=== PATIENT | female | born 1960 | race Caucasian/White ===

== ENCOUNTER 2017-11-20 11:38 | Inpatient (IN) | payer SELFPAY ==
[~2017-11-20] VITALS: Ht 160 cm; Wt 57.0 kg
[2017-11-20] VITALS (11 sets, daily range): BP systolic 73–117; BP diastolic 59–79
[~2017-11-20 11:38] MED LIST: AQUAPHILIC454 GM TP; ASACOL400 MG PO; CIPRO500 MG PO; DELZICOL400 M1 PO; Folvite PO; HYDROCHLOROTH12.5 M3 PO; HYDROCODON-ACE1 EAC7 PO; Habitrol,Nicoderm CQ TD; LIALDA1.2 GM PO; LIDODERM 5% P1 PATCH TD; Levaquin PO; MACROBID100 MG PO; NICOTINE PATCH1 EAC1 TD; PRILOSEC20 MG PO; PYRIDIUM200 MG PO; Preparation H PR; Protonix PO; TRAMADOL HCL50 MG PO; oxyCODONE PO; predniSONE PO
[2017-11-20 12:20] LABS: HEMATOCRIT 41.7 % (36.0-46.0); HEMOGLOBIN 14.3 G/DL (11.9-15.5); MCH 30.4 PG (29.0-34.0); MCHC 34.3 G/DL (30.0-36.0); MCV 88.5 FL (83-99); NRBC (%) 0.2 /100 WBC (0-0); PLATELET COUNT 240 K/uL (156-360); RBC DIS.WIDTH-CV 18.2 % (11.8-14.6); RBC DIS.WIDTH-SD 56.1 % (39-53); RED BLOOD COUNT 4.71 M/uL (3.80-5.20); WHITE BLOOD COUNT 10.5 K/uL (4.1-10.2)
[2017-11-20 12:29] LABS: CHLORIDE 112 mEq/L (99-109); POTASSIUM 4.3 mEq/L (3.7-5.4); SODIUM 137 mEq/L (136-147)
[2017-11-20 12:31] LABS: GLUCOSE 117 mg/dL (70-99)
[2017-11-20 12:35] LABS: CREATININE 1.5 mg/dL (0.6-1.3); GFR ESTIMATE (CALCULATED) 38 mL/min/
[2017-11-20 12:36] LABS: UREA NITROGEN (BUN) 9 mg/dL (9-23)
[2017-11-20 12:41] LABS: TROP-I INTERPRETATION NEGATIVE; TROPONIN-I < 0.01 ng/mL (0.0-0.30)
[2017-11-20 14:11] LABS: CARBON DIOXIDE (BICARBONATE) 7.2 MEQ/L (20-31)
[2017-11-20] MEDS ORDERED: TYLENOL REGULA325 MG PO (15:03)
[2017-11-20] MEDS ORDERED: POTASSIUM-9999 MG PO (15:03)
[2017-11-20 17:35] LABS: INTER. NORMALIZED RATIO 1.3
[2017-11-20 17:37] LABS: PTT 33.2 SEC (25-37)
[2017-11-20 18:04] LABS: ACETAMINOPHEN (TYLENOL) 27 mcg/mL (10-30); SALICYLATE < 5.0 MG/DL (15-30)
[2017-11-20 18:10] LABS: DEVICE RA; PCO2 19 mm Hg (35-45); SITE RB; TOTAL RESP RATE 26 resp/min; pH 7.18 (7.35-7.45)
[2017-11-20 18:11] LABS: CARBOXY HGB 1.2 % (0-5); METHEMOGLOBIN 1.2 % (0-1.5); O2 SATURATION (CALCULATED) 96.9 % (95-99); PO2 130 mm Hg (80-100)
[2017-11-20 18:31] LABS: APPEARANCE TURBID ((CLEAR)); BILIRUBIN NEGATIVE; BLOOD LARGE; COLOR AMBER ((YELLOW)); GLUCOSE (STRIP) NEGATIVE; KETONES NEGATIVE; LEUKOCYTES LARGE; NITRITE POSITIVE; PROTEIN (STRIP) 100; UROBILINOGEN 0.2 MG/DL (0.2-1.0)
[2017-11-20 18:41] LABS: TOTAL BILIRUBIN 0.3 mg/dL (0.0-1.0)
[2017-11-20 18:43] LABS: ALKALINE PHOSPHATASE 176 IU/L (3-129); CREATININE 1.4 mg/dL (0.6-1.3); GFR ESTIMATE (CALCULATED) 41 mL/min/
[2017-11-20 18:44] LABS: UREA NITROGEN (BUN) 11 mg/dL (9-23)
[2017-11-20 18:45] LABS: AST (GOT) 7 IU/L (2-34)
[2017-11-20 18:46] LABS: ALT (GPT) 8 IU/L (3-49)
[2017-11-20 18:49] LABS: ALBUMIN 3.4 g/dL (3.2-4.8); CHLORIDE 115 mEq/L (99-109); SODIUM 137 mEq/L (136-147); TOTAL PROTEIN 6.4 g/dL (6.4-8.3)
[2017-11-20 18:56] LABS: RED BLOOD CELLS TNTC /HPF (0-5); UCUL ADDED? YES; WHITE BLOOD CELLS TNTC /HPF (0-5)
[2017-11-20 19:06] LABS: GLUCOSE 158 mg/dL (70-99); POTASSIUM 3.3 mEq/L (3.7-5.4)
[2017-11-20 19:12] LABS: INTER. NORMALIZED RATIO 1.4
[2017-11-20 19:15] LABS: PTT 31.5 SEC (25-37)
[2017-11-20 19:21] LABS: HIGH-SENS C-REACTIVE PROTEIN 7.51 MG/DL (0.02-0.20)
[2017-11-20 19:24] LABS: CREATINE KINASE 33 IU/L (1-294)
[2017-11-20 23:53] LABS: CHLORIDE 115 mEq/L (99-109); SODIUM 142 mEq/L (136-147)
[2017-11-20 23:54] LABS: MAGNESIUM 1.2 mg/dL (1.3-2.7)
[2017-11-20 23:55] LABS: GLUCOSE 219 mg/dL (70-99)
[2017-11-20 23:59] LABS: CREATININE 1.1 mg/dL (0.6-1.3); GFR ESTIMATE (CALCULATED) 55 mL/min/; PHOSPHORUS 1.9 mg/dL (2.5-4.9)
[2017-11-21] VITALS (14 sets, daily range): BP systolic 92–115; BP diastolic 56–74
[2017-11-21] LABS: UREA NITROGEN (BUN) 8 mg/dL (9-23)
[2017-11-21 00:01] LABS: POTASSIUM 2.4 mEq/L (3.7-5.4)
[2017-11-21 05:50] LABS: BASOPHIL (%) 0 % (0-1); EOSINOPHIL (%) 0 % (0-5); HEMATOCRIT 20.8 % (36.0-46.0); IMMATURE GRANULOCYTE (%) 0.6 % (0.0-0.7); LYMPHOCYTE (%) 17.7 % (15-42); LYMPHOCYTE COUNT 0.3 K/uL (1.0-2.8); MCHC 34.6 G/DL (30.0-36.0); MCV 86.7 FL (83-99); MONOCYTE (%) 1.2 % (3-12); NEUTROPHIL (%) 80.5 % (45-76); NEUTROPHIL COUNT 1.3 K/uL (1.8-6.4); RBC DIS.WIDTH-CV 17.2 % (11.8-14.6); RBC DIS.WIDTH-SD 53.4 % (39-53)
[2017-11-21 06:16] LABS: ALBUMIN 2.5 G/DL (3.2-4.8); ALKALINE PHOSPHATASE 123 IU/L (3-129); ALT (GPT) 5 IU/L (3-49); AST (GOT) 8 IU/L (2-34); CHLORIDE 109 MEQ/L (99-109); CREATININE 0.8 MG/DL (0.6-1.3); GFR ESTIMATE (CALCULATED) > 59 mL/min/; GLUCOSE 227 mg/dL (70-99); PHOSPHORUS 3.1 mg/dL (2.5-4.9); SODIUM 143 MEQ/L (136-147); TOTAL BILIRUBIN 0.2 MG/DL (0.0-1.0); TOTAL PROTEIN 4.5 G/DL (6.4-8.3); UREA NITROGEN (BUN) 5 mg/dL (9-23)
[2017-11-21 06:46] LABS: HEMOGLOBIN 7.2 G/DL (11.9-15.5); WHITE BLOOD COUNT 1.6 K/uL (4.1-10.2)
[2017-11-21 08:32] LABS: PLAT.SUFFICIENCY DECREASED
[2017-11-21 08:44] LABS: PLATELET COUNT 101 K/uL (156-360)
[2017-11-21 15:34] LABS: HEMATOCRIT 22.1 % (36.0-46.0); HEMOGLOBIN 8.2 G/DL (11.9-15.5); MCH 31.1 PG (29.0-34.0); MCHC 37.1 G/DL (30.0-36.0); MCV 83.7 FL (83-99); PLATELET COUNT 121 K/uL (156-360); RBC DIS.WIDTH-CV 17.3 % (11.8-14.6); RBC DIS.WIDTH-SD 51.8 % (39-53); RED BLOOD COUNT 2.64 M/uL (3.80-5.20); WHITE BLOOD COUNT 3.9 K/uL (4.1-10.2)
[2017-11-21 18:54] LABS: CHLORIDE 102 MEQ/L (99-109); CREATININE 0.7 MG/DL (0.6-1.3); GFR ESTIMATE (CALCULATED) > 59 mL/min/; MAGNESIUM 1.8 mg/dl (1.3-2.7); POTASSIUM 3.5 MEQ/L (3.7-5.4); SODIUM 141 MEQ/L (136-147); UREA NITROGEN (BUN) 4 mg/dL (9-23)
[2017-11-21 18:56] LABS: GLUCOSE 113 mg/dL (70-99); PHOSPHORUS 1.9 mg/dL (2.5-4.9)
[2017-11-22 00:13] VITALS: BP 91/58
[2017-11-22 04:11] VITALS: BP 98/59
[2017-11-22 05:57] LABS: BASOPHIL (%) 0 % (0-1); EOSINOPHIL (%) 0.1 % (0-5); HEMATOCRIT 27.9 % (36.0-46.0); HEMOGLOBIN 9.7 G/DL (11.9-15.5); IMMATURE GRANULOCYTE (%) 1.1 % (0.0-0.7); LYMPHOCYTE COUNT 0.3 K/uL (1.0-2.8); MCH 30.4 PG (29.0-34.0); MCHC 34.8 G/DL (30.0-36.0); MCV 87.5 FL (83-99); MONOCYTE (%) 4.1 % (3-12); MONOCYTE COUNT 0.3 K/uL (0-0.8); NEUTROPHIL (%) 90.7 % (45-76); NEUTROPHIL COUNT 7.5 K/uL (1.8-6.4); PLATELET COUNT 139 K/uL (156-360); RBC DIS.WIDTH-CV 17.9 % (11.8-14.6); WHITE BLOOD COUNT 8.2 K/uL (4.1-10.2)
[2017-11-22 06:10] LABS: RED BLOOD COUNT 3.19 M/uL (3.80-5.20)
[2017-11-22 06:23] LABS: ALBUMIN 2.8 G/DL (3.2-4.8); ALKALINE PHOSPHATASE 127 IU/L (3-129); ALT (GPT) 6 IU/L (3-49); CHLORIDE 96 MEQ/L (99-109); CREATININE 0.9 MG/DL (0.6-1.3); GFR ESTIMATE (CALCULATED) > 59 mL/min/; GLUCOSE 129 mg/dL (70-99); MAGNESIUM 1.8 mg/dl (1.3-2.7); PHOSPHORUS 2.5 mg/dL (2.5-4.9); POTASSIUM 3.6 MEQ/L (3.7-5.4); SODIUM 142 MEQ/L (136-147); UREA NITROGEN (BUN) 7 mg/dL (9-23)
[2017-11-22 06:24] LABS: AST (GOT) 12 IU/L (2-34); TOTAL BILIRUBIN 0.3 MG/DL (0.0-1.0)
[2017-11-22 08:01] VITALS: BP 102/62
[2017-11-22 11:30] VITALS: BP 101/65
[2017-11-22 17:40] VITALS: BP 109/69
[2017-11-22 19:57] LABS: CHLORIDE 94 MEQ/L (99-109); CREATININE 0.9 MG/DL (0.6-1.3); GFR ESTIMATE (CALCULATED) > 59 mL/min/; GLUCOSE 174 mg/dL (70-99); PHOSPHORUS 2.3 mg/dL (2.5-4.9); SODIUM 139 MEQ/L (136-147); UREA NITROGEN (BUN) 9 mg/dL (9-23)
[2017-11-22 19:59] LABS: MAGNESIUM 2.4 mg/dl (1.3-2.7)
[2017-11-23 00:11] VITALS: BP 106/60
[2017-11-23 06:14] LABS: ALBUMIN 2.5 G/DL (3.2-4.8); ALT (GPT) 9 IU/L (3-49); AST (GOT) 16 IU/L (2-34); CHLORIDE 96 MEQ/L (99-109); CREATININE 0.9 MG/DL (0.6-1.3); GFR ESTIMATE (CALCULATED) > 59 mL/min/; GLUCOSE 141 mg/dL (70-99); MAGNESIUM 2.2 mg/dl (1.3-2.7); PHOSPHORUS 2.4 mg/dL (2.5-4.9); POTASSIUM 3.3 MEQ/L (3.7-5.4); SODIUM 141 MEQ/L (136-147); TOTAL BILIRUBIN 0.3 MG/DL (0.0-1.0); TOTAL PROTEIN 4.5 G/DL (6.4-8.3); UREA NITROGEN (BUN) 10 mg/dL (9-23)
[2017-11-23 06:15] LABS: ALKALINE PHOSPHATASE 90 IU/L (3-129)
[2017-11-23 07:11] LABS: HEMATOCRIT 23.6 % (36.0-46.0); HEMOGLOBIN 7.9 G/DL (11.9-15.5); MCHC 33.5 G/DL (30.0-36.0); MCV 89.7 FL (83-99); RBC DIS.WIDTH-CV 17.1 % (11.8-14.6); RBC DIS.WIDTH-SD 55.4 % (39-53); RED BLOOD COUNT 2.63 M/uL (3.80-5.20); WHITE BLOOD COUNT 3.2 K/uL (4.1-10.2)
[2017-11-23 07:23] VITALS: BP 92/61
[2017-11-23 08:00] LABS: ABS NEUTROPHIL COUNT 3.1; ANISOCYTOSIS 3+; BAND NEUTROPHILS 3.5 % (0-8.0); EOSINOPHIL ABS CT 0; HYPOCHROMASIA 2+; LYMPHOCYTES 4.4 % (15.0-45.0); MACROCYTES 1+; MICROCYTOSIS 2+; NUCLEATED RBC'S 0.9; PLAT.SUFFICIENCY DECREASED; POIKILOCYTOSIS 1+; SEG.NEUTROPHILS 92.1 % (46.0-76.0)
[2017-11-23 08:04] LABS: PLATELET COUNT 86 K/uL (156-360)
[2017-11-23 14:14] LABS: HEMATOCRIT 24.9 % (36.0-46.0); HEMOGLOBIN 8.5 G/DL (11.9-15.5); MCV 90.2 FL (83-99)
[2017-11-23 15:52] VITALS: BP 106/57
[2017-11-24] VITALS (8 sets, daily range): BP systolic 93–120; BP diastolic 62–69
[2017-11-24 06:06] LABS: BASOPHIL (%) 0 % (0-1); EOSINOPHIL (%) 0 % (0-5); HEMATOCRIT 22.4 % (36.0-46.0); HEMOGLOBIN 7.4 G/DL (11.9-15.5); IMMATURE GRANULOCYTE (%) 0.3 % (0.0-0.7); LYMPHOCYTE (%) 8.9 % (15-42); LYMPHOCYTE COUNT 0.3 K/uL (1.0-2.8); MCH 30.3 PG (29.0-34.0); MCV 91.8 FL (83-99); MONOCYTE (%) 3.8 % (3-12); MONOCYTE COUNT 0.1 K/uL (0-0.8); NEUTROPHIL COUNT 3.2 K/uL (1.8-6.4); PLATELET COUNT 77 K/uL (156-360); RBC DIS.WIDTH-CV 16.2 % (11.8-14.6); RBC DIS.WIDTH-SD 54.4 % (39-53); RED BLOOD COUNT 2.44 M/uL (3.80-5.20); WHITE BLOOD COUNT 3.7 K/uL (4.1-10.2)
[2017-11-24 06:28] LABS: ALBUMIN 2.5 G/DL (3.2-4.8); ALKALINE PHOSPHATASE 83 IU/L (3-129); ALT (GPT) 15 IU/L (3-49); AST (GOT) 19 IU/L (2-34); CHLORIDE 97 MEQ/L (99-109); CREATININE 0.9 MG/DL (0.6-1.3); GFR ESTIMATE (CALCULATED) > 59 mL/min/; GLUCOSE 123 mg/dL (70-99); PHOSPHORUS 2.4 mg/dL (2.5-4.9); POTASSIUM 3.2 MEQ/L (3.7-5.4); SODIUM 141 MEQ/L (136-147); TOTAL BILIRUBIN 0.3 MG/DL (0.0-1.0); TOTAL PROTEIN 4.6 G/DL (6.4-8.3); UREA NITROGEN (BUN) 13 mg/dL (9-23)
[2017-11-24 08:09] LABS: FOLIC ACID (FOLATE) 1.8 NG/ML (5.0-22.0)
[2017-11-25 05:45] LABS: BASOPHIL (%) 0 % (0-1); EOSINOPHIL (%) 0 % (0-5); HEMATOCRIT 26.5 % (36.0-46.0); HEMOGLOBIN 8.7 G/DL (11.9-15.5); IMMATURE GRANULOCYTE (%) 0.9 % (0.0-0.7); LYMPHOCYTE COUNT 0.6 K/uL (1.0-2.8); MCH 30.2 PG (29.0-34.0); MCHC 32.8 G/DL (30.0-36.0); MONOCYTE (%) 4.6 % (3-12); MONOCYTE COUNT 0.2 K/uL (0-0.8); NEUTROPHIL (%) 82.5 % (45-76); NEUTROPHIL COUNT 3.8 K/uL (1.8-6.4); PLATELET COUNT 67 K/uL (156-360); RBC DIS.WIDTH-CV 15.9 % (11.8-14.6); RBC DIS.WIDTH-SD 52.6 % (39-53); RED BLOOD COUNT 2.88 M/uL (3.80-5.20); WHITE BLOOD COUNT 4.6 K/uL (4.1-10.2)
[2017-11-25 06:13] LABS: ALBUMIN 2.5 G/DL (3.2-4.8); ALKALINE PHOSPHATASE 74 IU/L (3-129); ALT (GPT) 19 IU/L (3-49); AST (GOT) 19 IU/L (2-34); CHLORIDE 98 MEQ/L (99-109); GFR ESTIMATE (CALCULATED) > 59 mL/min/; MAGNESIUM 1.8 mg/dl (1.3-2.7); PHOSPHORUS 2.5 mg/dL (2.5-4.9); POTASSIUM 3.1 MEQ/L (3.7-5.4); SODIUM 143 MEQ/L (136-147); TOTAL BILIRUBIN 0.3 MG/DL (0.0-1.0); TOTAL PROTEIN 4.4 G/DL (6.4-8.3); UREA NITROGEN (BUN) 13 mg/dL (9-23)
[2017-11-25 06:21] LABS: GLUCOSE 84 mg/dL (70-99)
[2017-11-25 08:02] VITALS: BP 96/65
[2017-11-25] MEDS ORDERED: KEFLEX500 MG PO (11:40)
[2017-11-25] MEDS ORDERED: PHENAZOPYRIDIN100 MG PO (11:40)
[2017-11-25] MEDS ORDERED: PREDNISONE20 MG PO (11:40)
[2017-11-25] MEDS ORDERED: FOLIC ACID1 MG PO (12:08)
== END 2017-11-25 15:02 | disposition home or self-care (01) | DRG 808 ==
LOC: EME 11:38 → EDOF 16:47 → 4WEST 16:47 → ENRESERV 16:49 → 4WEST 17:40 → ENRESERV 11-21 02:46 → 4WEST 11-21 13:32 → ENRESERV 11-21 16:09 → CANRESERV 11-21 16:09 → ENRESERV 11-21 16:43 → 5SOUTH 11-21 17:21
PROVIDERS: Emergency Medicine; Hospitalist; Internal Medicine; Internal Medicine Hematology & Oncology; Internal Medicine Medical Oncology; Physician Assistant Medical
PROC: 02HV33Z Insertion of Infusion Device into Superior Vena Cava, Percutaneous Approach (ICD-10-PCS; principal; 2017-11-20)
DX: D61.818 Other pancytopenia (principal); N30.90 Cystitis, unspecified without hematuria; E83.51 Hypocalcemia; N17.9 Acute kidney failure, unspecified; E86.0 Dehydration; B96.1 Klebsiella pneumoniae [K. pneumoniae] as the cause of diseases classified elsewhere; K70.30 Alcoholic cirrhosis of liver without ascites; K50.90 Crohn's disease, unspecified, without complications; I10 Essential (primary) hypertension; E87.4 Mixed disorder of acid-base balance; D73.1 Hypersplenism; R65.20 Severe sepsis without septic shock; E87.6 Hypokalemia; F17.200 Nicotine dependence, unspecified, uncomplicated; Z91.14 Patient's other noncompliance with medication regimen; F10.20 Alcohol dependence, uncomplicated; K08.89 Other specified disorders of teeth and supporting structures; K76.6 Portal hypertension; J44.9 Chronic obstructive pulmonary disease, unspecified; E83.39 Other disorders of phosphorus metabolism
CPT/HCPCS: 36600; 71045; 71046; 74176; 80048; 80048 91; 80053; 81003; 82010; 82140; 82272; 82306; 82330; 82550 91; 82607; 82746; 82803; 83605; 83735; 83880; 83930; 84100; 84145 90; 84484; 85014; 85018; 85025; 85027; 85379; 85610; 85730; 86141; 86850; 86900; 86901; 86920; 87077; 87086; 87186; 87641; 93005; 94644; 99281; 99285; C1751; G0480; J0132; J0696; J1447; J1940; J2270; J2405; J2930; J3010; J3475; J3480; J7030; J7050; J7060; J7070; J7512; P9016; S0030